=== PATIENT | male | born 1945 | race Caucasian/White ===

== ENCOUNTER → 2017-02-23 | Outpatient (CLI) | payer MEDICARE ==
[~2017-02-23] MED LIST: BUPIVACAINE MPF 0.25% 10 ML VIAL. ONE; LIDOCAINE 1% PF 30 ML VIAL. ONE; methylPREDNISolone ACETATE 40 MG/ML VIAL. ONE
== END | disposition home or self-care (01) ==
LOC: SURG 12:41
PROVIDERS: ATTEND Anesthesiology
DX: M46.1 Sacroiliitis, not elsewhere classified (principal); M19.91 Primary osteoarthritis, unspecified site
CPT/HCPCS: 99204; G0260; J1030; J2001; J3490

== ENCOUNTER → 2017-03-16 | Outpatient (CLI) | payer MEDICARE ==
[~2017-03-16] MED LIST changes: +DEXAMETHASONE SOD PHOS 4 MG/ML VIAL ONE; +IV RINGERS SOLUTION,LACTATED 1,000 ML IV ONE; +LIDOCAINE (700MG/PATCH) PATCH. ONE; +LIDOCAINE (700MG/PATCH) PATCH. TD ONE; +MIDAZOLAM HCL PF 2 MG/2 ML VIAL. ONE
== END | disposition home or self-care (01) ==
LOC: SURG 11:34
PROVIDERS: ATTEND Anesthesiology
DX: M53.3 Sacrococcygeal disorders, not elsewhere classified (principal); I10 Essential (primary) hypertension; M19.90 Unspecified osteoarthritis, unspecified site
CPT/HCPCS: 64635; 64636; 64640; J1030; J1100; J2001; J2250; J3490; J7120; J3010